=== PATIENT | female | born 1935 | race Asian ===

== ENCOUNTER 2018-07-12 06:07 | Outpatient (CLI) | payer MEDICARE ==
--- NOTE | 2018-06-29 13:10 | NUR ---
GAVE INSTRUCTIONS TO PT. INSTRUCTED TO BE NPO AFTER MIDNIGHT. INSTRUCTED TO TAKE HER MEDS IN THE MORNING, ESPECIALLY HER BP MEDS.
--- NOTE | 2018-06-29 13:17 | NUR ---
CALLED AND LEFT A MSG ON HER MACHINE TO CALL WITH QUESTIONS. LEFT ADDRESS OF OUR [facility]
[2018-07-12] VITALS (15 sets, daily range): BP systolic 141–199; BP diastolic 58–86; PULSE 59–111; TEMP 98.4
[~2018-07-12] VITALS: Ht 162.6 cm; Wt 54.5 kg
[~2018-07-12 06:07] MED LIST: ASPIRIN 81M81 MG/TA2 PO; FOSAMAX 70MG TA70 MG PO; LOFIBRA160 MG PO; MOBIC 7.5MG7.5 MG PO; PRILOSEC 20MG20 MG PO; TOPROL XL 25MG25 MG PO; VITAMIN D31000 I1 PO; XOPENEX HF0.045 MG/A IH; ZOCOR 40MG40 MG PO
--- NOTE | 2018-07-12 08:07 | NUR ---
PT PLACED ON THE TABLE, MONITORING EQUIPMENT PLACED. PT SAID PRAYER BEFORE DR MAJOR GOT INTO THE ROOM. PT COMFORTABLE.
--- NOTE | 2018-07-12 08:15 | NUR ---
PT DOING WELL
--- NOTE | 2018-07-12 08:20 | NUR ---
PROCEDURE COMPLETED. SAMPLES TAKEN. PT COUGHING UP BLOOD, GIVEN KLEENEX AND BAG. PT TRANSFERED TO CART AND TAKEN TO EU 10. REPORT GIVEN TO LIZABETH KIRK. PT REMAINS ON 02. GRAND DAUGHTER NOT IN WAITING ROOM. SPOKE TO RN CARDIOVASCULAR REGARDING THIS CONCERN.
--- NOTE | 2018-07-12 08:40 | NUR ---
Pt to EU 10 per cart s/p lung bx. Pt is having a small amount of hemoptosis. Pt resting well, grandaughter at bedside.
--- NOTE | 2018-07-12 11:00 | NUR ---
Dr Rod in room and informed pt chest x ray looked good and she may go home.
--- NOTE | 2018-07-12 11:15 | NUR ---
Pt has ambulated, voided and giorgio PO intake s n/v. PIV removed from L W with catheter intact.
--- NOTE | 2018-07-12 11:25 | NUR ---
Pt discharged per w/c by nurse with granddaughter.
== END 2018-07-12 14:49 | disposition home or self-care (01) ==
LOC: COL.RAD 06:07
DX: J93.9 Pneumothorax, unspecified (principal); R91.1 Solitary pulmonary nodule
CPT/HCPCS: J2250; J3010